=== PATIENT | male | born 1940 | race Two or more races ===

== ENCOUNTER 2018-08-23 16:09 | Emergency (ER) | payer MEDICARE, OTHER ==
[~2018-08-23] VITALS: Ht 154.9 cm; Wt 81.8 kg
[2018-08-23 16:16] VITALS: RESP 17; Ht 154.9 cm; Wt 81.8 kg
[2018-08-23] MEDS ORDERED: KETOROLAC 15 MG INJ IM STA (18:22)
[2018-08-23] MEDS ORDERED: traMADol 50 MG TAB PO ONE (18:30)
[2018-08-23] MEDS ORDERED: ACETAMINOPHEN 325 MG TAB PO ONE (18:30)
[2018-08-23] MEDS ORDERED: TRAM50TA2 PO (20:02)
[2018-08-23] MEDS ORDERED: ACET500C5 PO (20:02)
--- NOTE | 2018-08-23 20:07 | ERD ---
ER Documentation Chief Complaint Chief Complaint PT BIB AMBULANCE WITH C/O BACK PAIN S/P GLF X1 DAY, NO KO HPI 78-year-old male presents with left upper back pain after slipping in the shower and falling into a countertop. Any hemoptysis, head injury, neck pain, deficits. He has pain in the left upper back with inspiration. ROS All systems reviewed and are negative except as per history of present illness. Medications Home Meds Active Scripts Tramadol HCl (Tramadol HCl) 50 Mg Tablet, 50 MG PO Q4 PRN for PAIN, #20 TAB Prov:TOMMIE POWERS MD 08/23/18 Acetaminophen* (Tylophen*) 500 Mg Capsule, 1 CAP PO Q6H PRN for PAIN AND OR ELEVATED TEMP, #20 CAP Prov:TOMMIE POWERS MD 08/23/18 PMhx/Soc Medical and Surgical Hx: pt denies Medical Hx, pt denies Surgical Hx History of Surgery: No Anesthesia Reaction: No Hx Neurological Disorder: No Hx Respiratory Disorders: No Hx Cardiac Disorders: No Hx Psychiatric Problems: No Hx Miscellaneous Medical Probl: No Hx Alcohol Use: No Hx Substance Use: No Hx Tobacco Use: No Smoking Status: Never smoker FmHx Family History: No diabetes, No coronary disease, No other Physical Exam Vitals Vital Signs Date Temp Pulse Resp B/P (MAP) Pulse Ox O2 O2 Flow FiO2 Time Delivery Rate 08/23/18 98.0 82 17 162/72 98 16:16 (102) Physical Exam Const: No acute distress Head: Atraumatic Eyes: Normal Conjunctiva ENT: Normal External Ears, Nose and Mouth. Neck: Full range of motion. No meningismus. Resp: Clear to auscultation bilaterally Cardio: Regular rate and rhythm, no murmurs tenderness around the left T8 posterior rib. No crepitance, bleeding, skin changes. Abd: Soft, non tender, non distended. Normal bowel sounds Skin: No petechiae or rashes Back: No midline or flank tenderness Ext: No cyanosis, or edema Neur: Awake and alert Psych: Normal Mood and Affect Results 24 hrs Current Medications Medications Dose Sig/Mila Start Time Status Last (Trade) Ordered Route PRN Stop Time Admin Dose Reason Admin Ketorolac 15 mg ONCE STAT 08/23/18 DC Tromethamine IM 18:22 (Toradol) 08/23/18 18:29 Tramadol 50 mg ONCE ONCE 08/23/18 DC 08/23/18 HCl PO 18:30 18:36 (Ultram) 08/23/18 18:31 650 mg ONCE ONCE 08/23/18 DC 08/23/18 Acetaminophen PO 18:30 18:36 (Tylenol 08/23/18 18:31 Tab) Procedures/MDM Patient given Tylenol and tramadol for pain. X-ray left ribs 2V Interpreted by me: Soft Tissue: No acute abnormalities Bones: Minimally displaced fracture of left posterior T7 rib. Mediastinum/Cardiac Silhouette/Lungs:No acute abnormalities. Possible small effusion. Resents with left upper rib pain after an injury today. He has an isolated rib fracture without signs of hemothorax, pneumothorax. He is a small left-sided effusion. There is no signs of hypoxemia, respiratory distress. His pain is well controlled with tramadol and Tylenol. Discharged home with recommendations for breathing and repeat x-ray in the next 3 to 4 days to reevaluate fluid collection. There is no signs of head injury, neck injury and is otherwise well-appearing. He is to return for fevers, vomiting, shortness of breath, hemoptysis, new worsening symptoms or primary care doctor this week. The patient was stable with no new complaints during the ER course. Clinically, there is no current evidence to suggest meningitis, sepsis, acute abdomen, pneumonia, stroke, acute coronary syndrome, pulmonary embolism, aortic dissection or any other emergent condition appearing to require further evaluation or hospitalization. Patient counseled regarding my diagnostic impression and care plan. Prior to discharge all questions answered. Pt agrees with treatment plan and understands strict return precautions. Pt is instructed to follow up with primary care provider within 24-48 hours. Precautionary instructions provided including instructions to return to the ER if not im proving or for any worsening or changing symptoms or concerns. Disclaimer: Inadvertent spelling and grammatical errors are likely due to EHR/dictation software use and do not reflect on the overall quality of patient care. Also, please note that the electronic time recorded on this note does not necessarily reflect the actual time of the patient encounter. Departure Diagnosis: Primary Impression: Fracture, rib Encounter type: initial encounter Rib fracture type: single rib Fracture type: closed Laterality: left Qualified Codes: S22.32XA - Fracture of one rib, left side, initial encounter for closed fracture Condition: Stable Patient Instructions: Rib Fracture (Broken Rib) Additional Instructions: There is a rib fracture in area of pain. Recommend repeat x-ray in 3 to 5 days to evaluate for fluid collection. Recheck sooner for fevers, blood, new worsening symptoms. TOMMIE POWERS MD August 23, 2018 20:07
[2018-08-23 20:40] VITALS: BP 179/84; PULSE 71
== END 2018-08-23 20:40 | disposition home or self-care (01) ==
LOC: FTE 16:09
DX: S22.32XA Fracture of one rib, left side, initial encounter for closed fracture (principal); W01.0XXA Fall on same level from slipping, tripping and stumbling without subsequent striking against object, initial encounter; Y92.9 Unspecified place or not applicable
CPT/HCPCS: 71100

== ENCOUNTER 2018-09-06 16:08 | Inpatient (IN) | payer MEDICARE, OTHER ==
[~2018-09-06] VITALS: Ht 172.7 cm; Wt 74.7 kg
[~2018-09-06 16:08] MED LIST: ACET500C5 PO; TRAM50TA2 PO
--- NOTE | 2018-09-06 17:25 | ERD ---
ER Documentation Chief Complaint Chief Complaint Generalized weakness HPI The patient is a 78-year-old male, presenting to the ER because of generalized weakness for 1 day from home according to EMS. He is unable to provide any history, the history is obtained from EMS and medical record He was seen in the ER in August 23, 2018 when he was found to have fracture of seventh rib We were able to speak to the daughter who stated that he has not been himself for the last 10 days, not eating or drinking Past medical history: Hypertension, diabetes mellitus Surgical history/social history/review system: Unable to obtain due to his c ondition Medications Home Meds Active Scripts Tramadol HCl (Tramadol HCl) 50 Mg Tablet, 50 MG PO Q4 PRN for PAIN, #20 TAB Prov:TOMMIE POWERS MD 08/23/18 Reported Medications Folic Acid* (Folic Acid*) 1 Mg Tablet, 1 MG PO DAILY, TAB 09/06/18 Sitagliptin* (Januvia*) 100 Mg Tablet, 100 MG PO DAILY, #30 TAB 09/06/18 Hydralazine Hcl* (Hydralazine Hcl*) 25 Mg Tab, 25 MG PO BID, #60 TAB 09/06/18 Potassium Chloride* (K-Dur*) 20 Meq Tab.prt.sr, 20 MEQ PO DAILY, TAB.SA 09/06/18 Naproxen* (Naproxen*) 500 Mg Tablet, 500 MG PO BID, TAB 09/06/18 Metoprolol Tartrate* (Lopressor*) 25 Mg Tab, 25 MG PO DAILY, #60 TAB 09/06/18 Gabapentin* (Gabapentin*) 300 Mg Capsule, 300 MG PO DAILY, #60 CAP 09/06/18 Warfarin Sodium* (Warfarin Sodium*) 4 Mg Tablet, 4 MG PO DAILY, TAB 09/06/18 Clonidine Hcl* (Clonidine Hcl*) 0.1 Mg Tab, 0.1 MG PO BID, TAB 09/06/18 Acetaminophen with Codeine (Acetaminophen-Cod #3 Tablet) 1 Each Tablet, 1 TAB PO Q6H PRN for NEEDED, #7 TAB 09/06/18 Discontinued Scripts Acetaminophen* (Tylophen*) 500 Mg Capsule, 1 CAP PO Q6H PRN for PAIN AND OR ELEVATED TEMP, #20 CAP Prov:TOMMIE POWERS MD 08/23/18 Allergies Allergies: Coded Allergies: No Known Allergy (Unverified , 09/06/18) PMhx/Soc History of Surgery: No Anesthesia Reaction: No Hx Neurological Disorder: No Hx Respiratory Disorders: No Hx Cardiac Disorders: No Hx Psychiatric Problems: No Hx Miscellaneous Medical Probl: No Hx Alcohol Use: No Hx Substance Use: No Hx Tobacco Use: No Physical Exam Vitals Vital Signs Date Temp Pulse Resp B/P (MAP) Pulse Ox O2 O2 Flow FiO2 Time Delivery Rate 09/06/18 99.2 100 16 139/73 93 17:22 (95) Physical Exam Const: No acute distress Head: Atraumatic Eyes: Normal Conjunctiva ENT: Normal External Ears, Nose and Mouth. Neck: Full range of motion. No meningismus. Resp: Clear to auscultation bilaterally Cardio: Regular rate and rhythm, no murmurs Abd: Soft, non tender, non distended. Normal bowel sounds Skin: No petechiae or rashes Back: No midline or flank tenderness Ext: Mild bilateral leg edema, no calf tenderness Neur: Unable to to perform due to his condition Psych: unable to perform due to his condition Result Diagram: 09/06/18 1730 09/06/18 173 Results 24 hrs Laboratory Tests Test 09/06/18 17:30 09/06/18 17:41 White Blood Count 10.4 10^3/ul Red Blood Count 4.61 10^6/ul Hemoglobin 11.7 g/dl Hematocrit 40.3 % Mean Corpuscular Volume 87.4 fl Mean Corpuscular Hemoglobin 25.4 pg Mean Corpuscular Hemoglobin Concent 29.0 g/dl Red Cell Distribution Width 15.3 % Platelet Count 215 10^3/UL Mean Platelet Volume 12.7 fl Immature Granulocytes % 0.300 % Neutrophils % 78.5 % Lymphocytes % 13.0 % Monocytes % 7.7 % Eosinophils % 0.1 % Basophils % 0.4 % Nucleated Red Blood Cells % 0.0 /100WBC Immature Granulocytes # 0.030 10^3/ul Neutrophils # 8.2 10^3/ul Lymphocytes # 1.4 10^3/ul Monocytes # 0.8 10^3/ul Eosinophils # 0.0 10^3/ul Basophils # 0.0 10^3/ul Nucleated Red Blood Cells # 0.0 10^3/ul Prothrombin Time 26.4 Sec Prothrombin Time Ratio 2.1 INR International Normalized Ratio 2.42 Activated Partial Thromboplast Time 48.4 Sec Sodium Level 155 mmol/L Potassium Level 6.2 mmol/L Chloride Level 120 mmol/L Carbon Dioxide Level 22 mmol/L Anion Gap 13 Blood Urea Nitrogen 79 mg/dl Creatinine 5.71 mg/dl Est Glomerular Filtrat Rate mL/min mL/min Glucose Level 153 mg/dl Calcium Level 9.5 mg/dl Total Bilirubin 0.5 mg/dl Direct Bilirubin 0.00 mg/dl Indirect Bilirubin 0.5 mg/dl Aspartate Amino Transf (AST/SGOT) 51 IU/L Alanine Aminotransferase (ALT/SGPT) 12 IU/L Alkaline Phosphatase 118 IU/L Troponin I < 0.012 ng/ml B-Type Natriuretic Peptide 613 PG/ML Total Protein 8.3 g/dl Albumin 4.4 g/dl Globulin 3.90 g/dl Albumin/Globulin Ratio 1.12 POC Venous Lactate 1.2 mmol/L Current Medications Medications Dose Sig/Mila Start Time Status Last (Trade) Ordered Route PRN Stop Time Admin Dose Reason Admin Sodium 30 gm ONCE STAT 09/06/18 DC Polystyrene PO 18:31 Sulfonate 09/06/18 18:34 (Kayexelate 15 Gm Kit (Powder+Sorbi kaitlyn)) Albuterol 15 mg ONCE STAT 09/06/18 DC (Proventil INH 18:31 0.5% (Neb)) 09/06/18 18:34 Insulin 10 unit ONCE STAT 09/06/18 DC Human IVP 18:31 Regular 09/06/18 18:34 (Humulin R) Dextrose ONCE PRN 09/06/18 (D50w IV DECREASED 19:00 Syringe) GLUCOSE Dextrose 100 ml ONCE ONCE 09/06/18 (D50w IV 19:00 Syringe) 09/06/18 19:01 Procedures/MDM EKG: Read by emergency physician Rate/Rhythm: Normal Sinus Rhythm 85 beats/min QRS, ST, T-waves: No ST elevation, no T inversion, LVH Impression: Abnormal EKG MEDICAL MAKING DECISION: The patient is a 78-year-old male, presenting to the ER because of acute encephalopathy of unclear etiology, most likely acute metabolic encephalopathy, acute kidney injury, acute hyperkalemia, acute dehydration, acute hyponatremia. He was treated with albuterol 15 mg nebulizer, Kayexalate 30 g p.o., 10 units of regular insulin IV, 2 amp of D50 IV for acute hyperkalemia, normosaline 500 mL IV for acute hypovolemic hypernatremia Monsivais catheter was inserted due to acute kidney injury The differential diagnoses considered include but are not limited to metabolic encephalopathy, electrolyte imbalance, acute dehydration, delirium Critical Care: Time: 35 minutes excluding all billable procedures. Treatments/Evaluations: Close monitoring and treatment of unstable vital signs, cardiorespiratory, and neurologic status, while maintaining tight balance of fluid, respiratory, and cardiac interventions. Departure Diagnosis: Primary Impression: Encephalopathy acute Additional Impressions: Hyperkalemia MONIKA (acute kidney injury) Hypernatremia Dehydration Anemia Transaminitis Condition: Serious Comments I discussed the findings with the patient. I discussed the patient with Dr Hyatt at 6:45 p , who was made aware of the lab, the treatment, the patient condition. The patient is admitted to Tel Disclaimer: Inadvertent spelling and grammatical errors are likely due to EHR/dictation software use and do not reflect on the overall quality of patient care. Also, please note that the electronic time recorded on this note does not necessarily reflect the actual time of the patient encounter. CHRISTINA BLACK MD Sep 06, 2018 17:25
[2018-09-06] MEDS ORDERED: ACET1TAB40 PO (17:52)
[2018-09-06] MEDS ORDERED: WARF4TAB64 PO (17:53)
[2018-09-06] MEDS ORDERED: CLON-379 PO (17:53)
[2018-09-06] MEDS ORDERED: GABA300C16 PO (17:54)
[2018-09-06] MEDS ORDERED: METO-448 PO (17:54)
[2018-09-06] MEDS ORDERED: POTA20TA15 PO (17:55)
[2018-09-06] MEDS ORDERED: NAPR-688 PO (17:55)
[2018-09-06] MEDS ORDERED: HYDR-3671 PO (17:55)
[2018-09-06] MEDS ORDERED: FOLI-49 PO (17:56)
[2018-09-06] MEDS ORDERED: SITA100T11 PO (17:56)
[2018-09-06] MEDS ORDERED: SODIUM POLYSTYRENE 15 GM KIT (POWDER + SORBITOL) PO STA (18:31)
[2018-09-06] MEDS ORDERED: INSULIN REGULAR, HUMAN 100 UNIT/1 ML 3ML VIAL IVP STA (18:31)
[2018-09-06] MEDS ORDERED: ALBUTEROL 0.5% (NEB) 2.5 MG/0.5 ML AMP INH STA (18:31)
[2018-09-06] MEDS ORDERED: NACL 0.9% 3 ML SYG IV SCH (19:00)
[2018-09-06] MEDS ORDERED: DEXTROSE 50% 50 ML SYRINGE IV ONE (19:00)
[2018-09-06] MEDS ORDERED: SOD CHLORIDE 0.9% 500 ML IV ONE (19:00)
[2018-09-06] MEDS ORDERED: DEXTROSE 50% 50 ML SYRINGE IV PRN (19:00)
--- NOTE | 2018-09-06 19:23 | HP ---
Date/Time of Note Date/Time of Note DATE: 09/06/18 TIME: 19:08 Assessment/Plan VTE Prophylaxis SCD applied (from Nsg): Yes Pharmacological prophylaxis: heparin Lines/Catheters IV Catheter Type (from Nrsg): Saline Lock Assessment/Plan Hospital Course 78 yo male with h/o hypertension, DVT who presents with acute encephalopathy syn drome. Found to have renal failure with hyperkalemia and hypernatremia of unclear etiology MONIKA: - I suspect this is prerenal disease cause by lasix, NSAID and poor PO intake. Also possible that he is obstructed - We will insert a grossman and check renal ultrasound - Give IV NS bolus - Consult Dr Hogan Hypernatremia: - correct free water deficit following isotonic fluids Hyperkalemia: - S/p insulin treatment in the ED - Trend K levels - Hopefully will improve with improvement in renal function Acute encephelopathy: - Toxic metabolic related to electrolyte derangements. Will monitor mental status as electrolytes improve history of DVT: - Currently on warfarin with therapeutic INR. Per daughter this happened years ago. We can consider stopping warfarin. Will hold it for now Hypertension: - Hold home meds and monitor Result Diagram: 09/06/18 1730 09/06/18 1730 Results 24hrs Laboratory Tests Test 09/06/18 17:30 09/06/18 17:41 09/06/18 19:00 White Blood Count 10.4 Red Blood Count 4.61 L Hemoglobin 11.7 L Hematocrit 40.3 L Mean Corpuscular Volume 87.4 Mean Corpuscular Hemoglobin 25.4 L Mean Corpuscular Hemoglobin Concent 29.0 L Red Cell Distribution Width 15.3 H Platelet Count 215 Mean Platelet Volume 12.7 H Immature Granulocytes % 0.300 Neutrophils % 78.5 H Lymphocytes % 13.0 L Monocytes % 7.7 Eosinophils % 0.1 Basophils % 0.4 Nucleated Red Blood Cells % 0.0 Immature Granulocytes # 0.030 Neutrophils # 8.2 H Lymphocytes # 1.4 Monocytes # 0.8 Eosinophils # 0.0 Basophils # 0.0 Nucleated Red Blood Cells # 0.0 Prothrombin Time 26.4 H Prothrombin Time Ratio 2.1 INR International Normalized Ratio 2.42 Activated Partial Thromboplast Time 48.4 H Sodium Level 155 H Potassium Level 6.2 *H Chloride Level 120 H Carbon Dioxide Level 22 Anion Gap 13 Blood Urea Nitrogen 79 H Creatinine 5.71 H Est Glomerular Filtrat Rate mL/min Glucose Level 153 Calcium Level 9.5 Total Bilirubin 0.5 Direct Bilirubin 0.00 Indirect Bilirubin 0.5 Aspartate Amino Transf (AST/SGOT) 51 H Alanine Aminotransferase (ALT/SGPT) 12 L Alkaline Phosphatase 118 Troponin I < 0.012 B-Type Natriuretic Peptide 613 H Total Protein 8.3 H Albumin 4.4 Globulin 3.90 H Albumin/Globulin Ratio 1.12 POC Venous Lactate 1.2 Bedside Glucose 126 HPI/ROS Admit Date/Time Admit Date/Time Hx of Present Illness Very week, can't go to bathroom. Keeps falling down when he tries to stand up. Just noticed this since yesterday. Urinating himself. Very sleepy. Tried to stand, fell back on couch. Normally he walks, talks. Goes to bathroom by himself. Not eating, not drinking. ROS Constitutional: no complaints, improved Eyes: no complaints ENT: no complaints Respiratory: no complaints Cardiovascular: no complaints Gastrointestinal: no complaints Genitourinary: no complaints Musculoskeletal: no complaints Skin: no complaints Neurologic: no complaints Endocrine: no complaints Lymphatic: no complaints Psychological: no complaints, nl mood/affect Immunologic: no complaints PMH/Family/Social Past Medical History DVT on warfarin Hypertension Medications Current Medications Dextrose (D50w Syringe) ONCE PRN IV DECREASED GLUCOSE; Start 09/06/18 at 19:00 Sodium Chloride 500 ml @ 500 mls/hr Q1H ONCE IV ; Start 09/06/18 at 19:00; Stop 09/06/18 at 19:59 Dextrose/Sodium Chloride 1,000 ml @ 100 mls/hr Q10H IV ; Start 09/06/18 at 18:44; Status UNV IV Flush (NS 3 ml) 3 ml PER PROTOCOL IV ; Start 09/06/18 at 19:00; Status UNV Sodium Chloride 1,000 ml @ 1,000 mls/hr Q1H ONCE IV ; Start 09/06/18 at 19:00; Stop 09/06/18 at 19:59; Status UNV Coded Allergies: No Known Allergy (Unverified , 09/06/18) Social History Smoking Status: Never smoker Exam/Review of Systems Vital Signs Vitals Vital Signs Date Temp Pulse Resp B/P (MAP) Pulse Ox O2 O2 Flow FiO2 Time Delivery Rate 09/06/18 99.2 100 16 139/73 93 17:22 (95) Exam Exam Alert, disoriented. Unable to converse with metal tile lather No distress Appears a bit dry mucosa RRR CTAB Breathing comfortably Abdomen soft nt nd Ext without edema RADAMES CARABALLO MD Sep 06, 2018 19:23
[2018-09-06] MEDS ORDERED: SOD CHLORIDE 0.9% 1,000 ML IV ONE (20:00)
[2018-09-06 23:05] VITALS: Ht 172.7 cm; Wt 74.7 kg
[2018-09-06 23:12] VITALS: PULSE 88
[2018-09-06] MEDS: DEXTROSE 5%-0.45% NACL 1,000 ML IV SCH (23:32)
[2018-09-07] VITALS (11 sets, daily range): BP systolic 135–175; BP diastolic 63–72; PULSE 53–93; RESP 17–20
[2018-09-07] MEDS ORDERED: GLUCOSE GEL 15 GRAM TUBE BUCCAL PRN (00:30)
[2018-09-07] MEDS ORDERED: GLUCAGON 1 MG INJ IM PRN (00:30)
[2018-09-07] MEDS ORDERED: SOD CHLORIDE 0.9% 500 ML IV ONE (00:30)
[2018-09-07] MEDS ORDERED: GLUCOSE GEL 15 GRAM TUBE PO PRN ×2 (00:30)
[2018-09-07] MEDS ORDERED: DEXTROSE 50% 50 ML SYRINGE IV PRN ×2 (00:30)
[2018-09-07] MEDS: DEXTROSE 5%-0.45% NACL 1,000 ML IV SCH ×2 (07:00→10:30)
[2018-09-07] MEDS: INSULIN ASPART [NOVOLOG] 3 ML PEN SC SCH ×4 (08:16→20:40)
--- NOTE | 2018-09-07 08:23 | CONS ---
DATE OF ADMISSION: 09/06/2018 DATE OF CONSULTATION: 09/07/2018 NEPHROLOGY CONSULTATION PHYSICIAN REQUESTING CONSULT: Dr. Solorzano. REASON FOR CONSULTATION: Acute kidney injury. HISTORY OF PRESENT ILLNESS: This is a 78-year-old male with a past medical history of hypertension, history of diabetes who presents to [facility] Emergency Room for generalized weakn ess. The patient upon arrival to the emergency room was confused, unable to provide any adequate his tory. The patient states the past several days he has not been able to tolerate p.o., eating o r drinking. Upon arrival to the emergency room, the patient had laboratory data drawn, which showed elevated BUN of 79, creatinine 5.7. Sodium 155. The patient in the emergency room was treated with IV hydration. Patient was given medications for his hyperkalemia and admitted to telemetry for evalu ation. In terms of patient's renal history, the patient's baseline renal function is unknown. The patient h as no prior history of reported kidney history per patient's family and documentation. There have be en no reports of any hemoptysis, hematemesis or hematochezia. PAST MEDICAL HISTORY: As stated above, history of diabetes, hypertension. ALLERGIES: NO KNOWN DRUG ALLERGIES. FAMILY HISTORY: No family history of kidney disease. PAST SURGICAL HISTORY: Reviewed. SOCIAL HISTORY: Does not drink, smoke or do drugs. MEDICATIONS: The patient's medications were reviewed. REVIEW OF SYSTEMS: A 14-point review of systems was conducted. Pertinent positives stated in HPI, o therwise negative. PHYSICAL EXAMINATION: VITAL SIGNS: Blood pressure is 144/67, respiration 18, pulse 71, temperature 98.4. HEENT: Head is normocephalic. NECK: Supple. HEART: Regular rate. LUNGS: Show diminished breath sounds at the base. ABDOMEN: Soft, nontender to palpation without rebound or guarding. EXTREMITIES: Negative for clubbing, cyanosis, no edema. DERMATOLOGIC: No rashes. MUSCULOSKELETAL: No joint effusion. NEUROLOGIC: No focal deficits. MEDICATIONS: The patient's medications have been reviewed. LABORATORY DATA: The laboratory data has been reviewed. Imaging studies have been reviewed. Urinalysis was reviewed. The patient shows a phenol less than 1 %. Renal ultrasound was reviewed, shows echogenic kidneys compatible with medical renal disease, no evidence of obstruction. ASSESSMENT AND PLAN: This is a 78-year-old male who presents with: 1. Nonoliguric acute kidney injury on top of chronic kidney disease with unknown baseline creatinine . Etiology of acute kidney injury is secondary to volume depletion and dehydration. The patient's u rinalysis shows FENa less than 1%, consistent with prerenal etiology. There is no evidence of active sediment. Renal ultrasound shows no obstruction. Recommendation is to continue patient on aggressi ve IV hydration. Otherwise, continue supportive care, renally dose all meds, avoid nephrotoxins. 2. Hypernatremia. The patient has a free water deficit of approximately 3 liters. Continue patient on hypertonic fluids, monitor sodium levels closely. Continue current free water intake. 3. Anemia. Monitor hemoglobin and hematocrit levels. 4. Mineral bone disorder, monitor calcium and phosphorus levels. 5. Lactic acidosis. Etiology is likely secondary to volume depletion, hemodynamics. Continue to mo nitor. Continue to trend lactic acid level. 6. Hyperkalemia, etiology is secondary to acute kidney injury. The patient's potassium levels have improved status post insulin and Kayexalate. Continue to monitor. 7. Acute encephalopathy, etiology is likely toxic metabolic secondary to acute kidney injury, hypona tremia. Continue to monitor, correct underlying underlying electrolyte abnormalities. 8. History of deep venous thrombosis. Continue to monitor. 9. Diabetes. Continue to monitor Accu-Cheks. 10. Hypertension. Continue to monitor closely on IV fluids. Thank you, Dr. Hyatt, for this interesting consult. It will be a pleasure to follow the patient wit h stefano throughout the hospital course. Dictated By: AMILCAR REED DO NR/NTS Conf#: [id number] DID#: [id number] CC: RADAMES HYATT MD;*EndCC*
[2018-09-07] MEDS: SOD CHLORIDE 0.45% 1,000 ML IV SCH ×2 (12:45→17:26)
--- NOTE | 2018-09-07 14:42 | PN ---
Date/Time of Note Date/Time of Note DATE: 09/07/18 TIME: 14:41 Assessment/Plan VTE Prophylaxis Risk score (from Ns)>0 risk: 4 SCD applied (from Ns): Yes Pharmacological prophylaxis: heparin Lines/Catheters IV Catheter Type (from Nrsg): Peripheral IV Urinary Cath still in place: Yes Reason Cath still needed: urinary retention Assessment/Plan Hospital Course 78 yo male with h/o hypertension, DVT who presents with acute encephalopathy syndrome. Found to have renal failure with hyperkalemia and hypernatremia of unclear etiology MONIKA: - I suspect this is prerenal disease cause by lasix, NSAID and poor PO intake. Also possible that he is obstructed - No evidence of obstructive disease - Continue NS Hypernatremia: - correct free water deficit following isotonic fluids Hyperkalemia: - S/p insulin treatment in the ED - Trend K levels - Hopefully will improve with improvement in renal function Acute encephelopathy: - Toxic metabolic related to electrolyte derangements. Will monitor mental status as electrolytes improve history of DVT: - Currently on warfarin with therapeutic INR. Per daughter this happened years ago. We can consider stopping warfarin. Will hold it for now Hypertension: - Hold home meds and monitor Result Diagram: 09/07/18 0628 09/07/18 0627 Results 24hrs Laboratory Tests Test 09/06/18 17:30 09/06/18 17:41 09/06/18 19:00 09/06/18 19:22 White Blood Count 10.4 Red Blood Count 4.61 L Hemoglobin 11.7 L Hematocrit 40.3 L Mean Corpuscular 87.4 Volume Mean Corpuscular 25.4 L Hemoglobin Mean Corpuscular 29.0 L Hemoglobin Concent Red Cell 15.3 H Distribution Width Platelet Count 215 Mean Platelet Volume 12.7 H Immature 0.300 Granulocytes % Neutrophils % 78.5 H Lymphocytes % 13.0 L Monocytes % 7.7 Eosinophils % 0.1 Basophils % 0.4 Nucleated Red Blood 0.0 Cells % Immature 0.030 Granulocytes # Neutrophils # 8.2 H Lymphocytes # 1.4 Monocytes # 0.8 Eosinophils # 0.0 Basophils # 0.0 Nucleated Red Blood 0.0 Cells # Prothrombin Time 26.4 H Prothrombin Time 2.1 Ratio INR International 2.42 Normalized Ratio Activated 48.4 H Partial Thromboplast Time Sodium Level 155 H Potassium Level 6.2 *H Chloride Level 120 H Carbon Dioxide Level 22 Anion Gap 13 Blood Urea Nitrogen 79 H Creatinine 5.71 H Est Glomerular Filtrat Rate mL/min Glucose Level 153 Calcium Level 9.5 Total Bilirubin 0.5 Direct Bilirubin 0.00 Indirect Bilirubin 0.5 Aspartate Amino 51 H Transf (AST/SGOT) Alanine 12 L Aminotransferase (AL T/SGPT) Alkaline Phosphatase 118 Troponin I < 0.012 B-Type Natriuretic 613 H Peptide Total Protein 8.3 H Albumin 4.4 Globulin 3.90 H Albumin/Globulin 1.12 Ratio POC Venous Lactate 1.2 Bedside Glucose 126 218 Test 09/06/18 19:35 09/06/18 19:46 09/06/18 19:50 09/06/18 22:26 Urine Color YELLOW Urine Clarity CLEAR Urine pH 5.0 Urine Specific 1.018 [place] Urine Ketones NEGATIVE Urine Nitrite NEGATIVE Urine Bilirubin NEGATIVE Urine Urobilinogen 1+ H Urine Leukocyte NEGATIVE Esterase Urine Microscopic 1 RBC Urine Microscopic 1 WBC Urine Hemoglobin 2+ H Urine Random 198.88 Creatinine Urine Random Sodium 28 L Urine Glucose NEGATIVE Urine Total Protein NEGATIVE Bedside Urine pH 5.5 (LAB) Bedside Urine 1+ H Protein (LAB) Bedside Urine Negative Glucose (UA) Bedside Urine Negative Ketones (LAB) Bedside Urine Blood 2+ H Bedside Urine Negative Nitrite (LAB) Bedside Urine Negative Leukocyte Esterase (L Lactic Acid Level 2.3 *H 3.3 *H Sodium Level 154 H Potassium Level 5.0 Chloride Level 121 H Carbon Dioxide Level 21 Anion Gap 12 Blood Urea Nitrogen 81 H Creatinine 5.33 H Est Glomerular Filtrat Rate mL/min Glucose Level 185 Calcium Level 8.9 Test 09/07/18 06:27 09/07/18 06:28 09/07/18 07:59 09/07/18 11:18 Sodium Level 155 H Potassium Level 4.9 Chloride Level 122 H Carbon Dioxide Level 24 Anion Gap 9 Blood Urea Nitrogen 70 H Creatinine 4.39 H Est Glomerular Filtrat Rate mL/min Glucose Level 183 Hemoglobin A1c 6.5 H Calcium Level 8.3 L Total Bilirubin 0.4 Direct Bilirubin 0.00 Indirect Bilirubin 0.4 Aspartate Amino 48 H Transf (AST/SGOT) Alanine 13 Aminotransferase (AL T/SGPT) Alkaline Phosphatase 80 Total Protein 6.3 # Albumin 3.2 #L Globulin 3.10 Albumin/Globulin 1.03 Ratio White Blood Count 9.0 Red Blood Count 3.74 L Hemoglobin 9.7 L Hematocrit 34.0 L Mean Corpuscular 90.9 Volume Mean Corpuscular 25.9 L Hemoglobin Mean Corpuscular 28.5 L Hemoglobin Concent Red Cell 15.3 H Distribution Width Platelet Count 155 # Mean Platelet Volume 13.0 H Immature 0.300 Granulocytes % Neutrophils % 67.7 Lymphocytes % 19.5 Monocytes % 10.7 Eosinophils % 1.4 Basophils % 0.4 Nucleated Red Blood 0.0 Cells % Immature 0.030 Granulocytes # Neutrophils # 6.1 Lymphocytes # 1.8 Monocytes # 1.0 H Eosinophils # 0.1 Basophils # 0.0 Nucleated Red Blood 0.0 Cells # Bedside Glucose 182 267 H Subjective 24 Hr Interval Summary Free Text/Dictation Seems like encephelopathy is improving Spoke coherently via hot molder Reports he has known kidney disease, sees a industrial automation engineer though doesn't know who Exam/Review of Systems Exam Vitals Vital Signs Date Temp Pulse Resp B/P (MAP) Pulse Ox O2 O2 Flow FiO2 Time Delivery Rate 09/07/18 56 13:59 09/07/18 97.8 17 151/67 97 11:17 (95) 09/07/18 Nasal 2.0 08:56 Cannula 09/06/18 21 19:51 Intake and Output 09/06/18 09/06/18 09/07/18 1515:00 23:00 07:00 IntakeIntake Total 250 ml OutputOutput Total 600 ml BalanceBalance -350 ml Constitutional: alert, oriented, well developed Psych: no complaints, nl mood/affect Head: normocephalic, atraumatic Eyes: nl conjunctiva, EOMI, nl lids, nl sclera, PERRL ENMT: nl external ears & nose, nl lips & teeth, nl nasal mucosa & septum Neck: supple, non-tender Respiratory: clear to auscultation, normal air movement Cardiovascular: regular rate and rhythm, nl pulses Gastrointestinal: soft, nl liver, spleen, non-tender Musculoskeletal: nl extremities to inspection, nl gait and stance Extremities: normal pulses Neurological: DENTAL CHAIRSIDE ASSISTANT II-XII intact, nl mental status, nl speech, nl strength Skin: nl turgor; No rash or lesions Lymph: nl lymph nodes Results Results 24hrs Laboratory Tests Test 09/06/18 17:30 09/06/18 17:41 09/06/18 19:00 09/06/18 19:22 White Blood Count 10.4 Red Blood Count 4.61 L Hemoglobin 11.7 L Hematocrit 40.3 L Mean Corpuscular 87.4 Volume Mean Corpuscular 25.4 L Hemoglobin Mean Corpuscular 29.0 L Hemoglobin Concent Red Cell 15.3 H Distribution Width Platelet Count 215 Mean Platelet Volume 12.7 H Immature 0.300 Granulocytes % Neutrophils % 78.5 H Lymphocytes % 13.0 L Monocytes % 7.7 Eosinophils % 0.1 Basophils % 0.4 Nucleated Red Blood 0.0 Cells % Immature 0.030 Granulocytes # Neutrophils # 8.2 H Lymphocytes # 1.4 Monocytes # 0.8 Eosinophils # 0.0 Basophils # 0.0 Nucleated Red Blood 0.0 Cells # Prothrombin Time 26.4 H Prothrombin Time 2.1 Ratio INR International 2.42 Normalized Ratio Activated 48.4 H Partial Thromboplast Time Sodium Level 155 H Potassium Level 6.2 *H Chloride Level 120 H Carbon Dioxide Level 22 Anion Gap 13 Blood Urea Nitrogen 79 H Creatinine 5.71 H Est Glomerular Filtrat Rate mL/min Glucose Level 153 Calcium Level 9.5 Total Bilirubin 0.5 Direct Bilirubin 0.00 Indirect Bilirubin 0.5 Aspartate Amino 51 H Transf (AST/SGOT) Alanine 12 L Aminotransferase (AL T/SGPT) Alkaline Phosphatase 118 Troponin I < 0.012 B-Type Natriuretic 613 H Peptide Total Protein 8.3 H Albumin 4.4 Globulin 3.90 H Albumin/Globulin 1.12 Ratio POC Venous Lactate 1.2 Bedside Glucose 126 218 Test 09/06/18 19:35 09/06/18 19:46 09/06/18 19:50 09/06/18 22:26 Urine Color YELLOW Urine Clarity CLEAR Urine pH 5.0 Urine Specific 1.018 [place] Urine Ketones NEGATIVE Urine Nitrite NEGATIVE Urine Bilirubin NEGATIVE Urine Urobilinogen 1+ H Urine Leukocyte NEGATIVE Esterase Urine Microscopic 1 RBC Urine Microscopic 1 WBC Urine Hemoglobin 2+ H Urine Random 198.88 Creatinine Urine Random Sodium 28 L Urine Glucose NEGATIVE Urine Total Protein NEGATIVE Bedside Urine pH 5.5 (LAB) Bedside Urine 1+ H Protein (LAB) Bedside Urine Negative Glucose (UA) Bedside Urine Negative Ketones (LAB) Bedside Urine Blood 2+ H Bedside Urine Negative Nitrite (LAB) Bedside Urine Negative Leukocyte Esterase (L Lactic Acid Level 2.3 *H 3.3 *H Sodium Level 154 H Potassium Level 5.0 Chloride Level 121 H Carbon Dioxide Level 21 Anion Gap 12 Blood Urea Nitrogen 81 H Creatinine 5.33 H Est Glomerular Filtrat Rate mL/min Glucose Level 185 Calcium Level 8.9 Test 09/07/18 06:27 09/07/18 06:28 09/07/18 07:59 09/07/18 11:18 Sodium Level 155 H Potassium Level 4.9 Chloride Level 122 H Carbon Dioxide Level 24 Anion Gap 9 Blood Urea Nitrogen 70 H Creatinine 4.39 H Est Glomerular Filtrat Rate mL/min Glucose Level 183 Hemoglobin A1c 6.5 H Calcium Level 8.3 L Total Bilirubin 0.4 Direct Bilirubin 0.00 Indirect Bilirubin 0.4 Aspartate Amino 48 H Transf (AST/SGOT) Alanine 13 Aminotransferase (AL T/SGPT) Alkaline Phosphatase 80 Total Protein 6.3 # Albumin 3.2 #L Globulin 3.10 Albumin/Globulin 1.03 Ratio White Blood Count 9.0 Red Blood Count 3.74 L Hemoglobin 9.7 L Hematocrit 34.0 L Mean Corpuscular 90.9 Volume Mean Corpuscular 25.9 L Hemoglobin Mean Corpuscular 28.5 L Hemoglobin Concent Red Cell 15.3 H Distribution Width Platelet Count 155 # Mean Platelet Volume 13.0 H Immature 0.300 Granulocytes % Neutrophils % 67.7 Lymphocytes % 19.5 Monocytes % 10.7 Eosinophils % 1.4 Basophils % 0.4 Nucleated Red Blood 0.0 Cells % Immature 0.030 Granulocytes # Neutrophils # 6.1 Lymphocytes # 1.8 Monocytes # 1.0 H Eosinophils # 0.1 Basophils # 0.0 Nucleated Red Blood 0.0 Cells # Bedside Glucose 182 267 H Medications Medication Current Medications Dextrose (D50w Syringe) ONCE PRN IV DECREASED GLUCOSE; Start 09/06/18 at 19:00 IV Flush (NS 3 ml) 3 ml PER PROTOCOL IV ; Start 09/06/18 at 19:00 Diagnostic Test (Pha) (Accu-Chek) 1 ea 02 XX ; Start 09/08/18 at 02:00 Insulin Aspart (Novolog Insulin Pen) NOVOLOG *MILD* ALGORITHM WITH MEALS BEDTIME SC Last administered on 09/07/18at 11:20; Admin Dose 4 UNIT; Start 09/07/18 at 07:55 Miscellaneous Information 1 ea NOTE XX ; Start 09/07/18 at 00:30 Glucose (Glutose) 15 gm Q15M PRN PO DECREASED GLUCOSE; Start 09/07/18 at 00:30 Glucose (Glutose) 22.5 gm Q15M PRN PO DECREASED GLUCOSE; Start 09/07/18 at 00:30 Dextrose (D50w Syringe) 25 ml Q15M PRN IV DECREASED GLUCOSE; Start 09/07/18 at 00:30 Dextrose (D50w Syringe) 50 ml Q15M PRN IV DECREASED GLUCOSE; Start 09/07/18 at 00:30 Glucagon (Glucagen) 1 mg Q15M PRN IM DECREASED GLUCOSE; Start 09/07/18 at 00:30 Glucose (Glutose) 15 gm Q15M PRN BUCCAL DECREASED GLUCOSE; Start 09/07/18 at 00:30 Sodium Chloride 1,000 ml @ 200 mls/hr Q5H IV Last administered on 09/07/18at 12:45; Admin Dose 200 MLS/HR; Start 09/07/18 at 12:00 RADAMES CARABALLO MD Sep 07, 2018 14:42
[2018-09-07] MEDS: hydrALAzine 20 MG INJ IV PRN (22:07)
[2018-09-08] VITALS (13 sets, daily range): BP systolic 10–189; BP diastolic 60–79; PULSE 59–93; RESP 16–20
[2018-09-08] MEDS: SOD CHLORIDE 0.45% 1,000 ML IV SCH ×4 (00:38→12:46)
[2018-09-08] MEDS ORDERED: ACCU-CHEK XX SCH (02:00)
[2018-09-08] MEDS: INSULIN ASPART [NOVOLOG] 3 ML PEN SC SCH ×4 (07:55→20:29)
--- NOTE | 2018-09-08 09:42 | PN ---
DATE: 09/08/2018 SUBJECTIVE: The patient is stable, no events overnight. OBJECTIVE: VITAL SIGNS: Blood pressure 189/77, respiration 18, pulse 66, temperature 97.6. HEENT: Head is normocephalic. NECK: Supple. HEART: Regular rate. LUNGS: Show diminished breath sounds at the base. ABDOMEN: Soft, nontender to palpation without rebound or guarding. EXTREMITIES: Negative for clubbing, cyanosis, no edema. DERMATOLOGIC: No rashes. MUSCULOSKELETAL: No joint effusion. NEUROLOGIC: No focal deficits. MEDICATIONS: Have been reviewed. LABORATORY DATA: Has been reviewed. IMAGING STUDIES: Have been reviewed. ASSESSMENT AND PLAN: 1. Nonoliguric acute kidney injury on top of CKD with unknown baseline creatinine. Etiology of MONIKA is secondary to volume depletion and dehydration. The patient's renal function has been improving wi th IV fluids. Recommendation is to continue IV hydration. We will deescalate rate from 200 mL to 50 mL an hour. We will monitor renal function and volume status closely. 2. Hypernatremia, resolved. Continue hypotonic fluids. Continue to encourage free water intake. 3. Anemia. Monitor H and H levels. 4. Mineral bone disorder. Monitor calcium and phosphorus levels. 5. Lactic acidosis secondary to volume depletion. Hemodynamics, improving. Continue to monitor. 6. Hyperkalemia. 7. Acute kidney injury, resolved. 8. Acute encephalopathy, etiology is toxic metabolic secondary to acute kidney injury and hypernatre lewis, improved. 9. Diabetes. Continue current insulin regimen. 10. Hypertension in part due to IV fluids. We will deescalate IV hydration and monitor closely. Co ntinue medical management. Defer any EDEN inhibitor or ARB at this time. Dictated By: AMILCAR DAVID/BECKIE Conf#: [id number] DID#: [id number]
--- NOTE | 2018-09-08 11:51 | PN ---
Date/Time of Note Date/Time of Note DATE: 09/08/18 TIME: 11:50 Assessment/Plan VTE Prophylaxis Risk score (from Ns)>0 risk: 4 SCD applied (from Ns): Yes Pharmacological prophylaxis: heparin Lines/Catheters IV Catheter Type (from Nrsg): Peripheral IV Urinary Cath still in place: No Assessment/Plan Hospital Course 78 yo male with h/o hypertension, DVT who presents with acute encephalopathy syndrome. Found to have renal failure with hyperkalemia and hypernatremia of unclear etiology MONIKA: - I suspect this is prerenal disease cause by lasix, NSAID and poor PO intake. Also possible that he is obstructed - No evidence of obstructive disease - Continue NS, renal function improving Hypernatremia: - Resolved Hyperkalemia: - Resolved Acute encephelopathy: - Toxic metabolic related to electrolyte derangements. Seems resolved to baseline history of DVT: - Currently on warfarin with therapeutic INR. Per daughter this happened years ago. We can consider stopping warfarin. Will hold it for now Hypertension: - Hold home meds and monitor Result Diagram: 09/08/1862009/08/1821 Results 24hrs Laboratory Tests Test 09/07/18 15:02 09/07/18 17:25 09/07/18 20:36 09/08/18 03:30 Sodium Level 149 H Potassium Level 4.6 Chloride Level 117 H Carbon Dioxide Level 22 Anion Gap 10 Blood Urea Nitrogen 63 H Creatinine 3.43 H Est Glomerular Filtrat Rate mL/min Glucose Level 139 # Calcium Level 8.0 L Bedside Glucose 110 189 Urine Color STRAW Urine Clarity CLEAR Urine pH 5.0 Urine Specific 1.010 [place] Urine Ketones NEGATIVE Urine Nitrite NEGATIVE Urine Bilirubin NEGATIVE Urine Urobilinogen NEGATIVE Urine Leukocyte NEGATIVE Esterase Urine Microscopic 1 RBC Urine Microscopic 1 WBC Urine Bacteria FEW A Urine Hemoglobin 1+ H Urine Random 42.12 Creatinine Urine Random Sodium 96 H Urine Glucose NEGATIVE Urine Total Protein 20.0 H Test 09/08/18 06:21 09/08/18 08:44 White Blood Count 8.5 Red Blood Count 3.79 L Hemoglobin 9.5 L Hematocrit 32.5 L Mean Corpuscular 85.8 Volume Mean Corpuscular 25.1 L Hemoglobin Mean Corpuscular 29.2 L Hemoglobin Concent Red Cell 14.8 H Distribution Width Platelet Count 145 Mean Platelet Volume 12.9 H Immature 0.500 H Granulocytes % Neutrophils % 67.7 Lymphocytes % 19.0 Monocytes % 8.7 Eosinophils % 3.9 Basophils % 0.2 Nucleated Red Blood 0.0 Cells % Immature 0.040 H Granulocytes # Neutrophils # 5.8 Lymphocytes # 1.6 Monocytes # 0.7 Eosinophils # 0.3 Basophils # 0.0 Nucleated Red Blood 0.0 Cells # Sodium Level 142 Potassium Level 4.3 Chloride Level 115 H Carbon Dioxide Level 21 Anion Gap 6 Blood Urea Nitrogen 47 #H Creatinine 2.62 H Est Glomerular Filtrat Rate mL/min Glucose Level 106 Calcium Level 8.2 L Phosphorus Level 3.1 Magnesium Level 2.0 Bedside Glucose 103 Subjective 24 Hr Interval Summary Free Text/Dictation Improving nicely Denies complaints Exam/Review of Systems Exam Vitals Vital Signs Date Temp Pulse Resp B/P (MAP) Pulse Ox O2 O2 Flow FiO2 Time Delivery Rate 09/08/18 59 08:01 09/08/18 97.4 18 189/77 98 Room Air 07:42 (114) 09/08/18 2.0 07:35 09/06/18 21 19:51 Intake and Output 09/07/18 09/07/18 09/08/18 1515:00 23:00 07:00 IntakeIntake Total 1000 ml 3200 ml 940 ml OutputOutput Total 500 ml 2300 ml BalanceBalance 1000 ml 2700 ml -1360 ml Constitutional: alert, oriented, well developed Psych: no complaints, nl mood/affect Head: normocephalic, atraumatic Eyes: nl conjunctiva, EOMI, nl lids, nl sclera, PERRL ENMT: nl external ears & nose, nl lips & teeth, nl nasal mucosa & septum Neck: supple, non-tender Respiratory: clear to auscultation, normal air movement Cardiovascular: regular rate and rhythm, nl pulses Gastrointestinal: soft, nl liver, spleen, non-tender Musculoskeletal: nl extremities to inspection, nl gait and stance Extremities: normal pulses Neurological: MICROCOMPUTER TECHNICIAN II-XII intact, nl mental status, nl speech, nl strength Skin: nl turgor; No rash or lesions Lymph: nl lymph nodes Results Results 24hrs Laboratory Tests Test 09/07/18 15:02 09/07/18 17:25 09/07/18 20:36 09/08/18 03:30 Sodium Level 149 H Potassium Level 4.6 Chloride Level 117 H Carbon Dioxide Level 22 Anion Gap 10 Blood Urea Nitrogen 63 H Creatinine 3.43 H Est Glomerular Filtrat Rate mL/min Glucose Level 139 # Calcium Level 8.0 L Bedside Glucose 110 189 Urine Color STRAW Urine Clarity CLEAR Urine pH 5.0 Urine Specific 1.010 [place] Urine Ketones NEGATIVE Urine Nitrite NEGATIVE Urine Bilirubin NEGATIVE Urine Urobilinogen NEGATIVE Urine Leukocyte NEGATIVE Esterase Urine Microscopic 1 RBC Urine Microscopic 1 WBC Urine Bacteria FEW A Urine Hemoglobin 1+ H Urine Random 42.12 Creatinine Urine Random Sodium 96 H Urine Glucose NEGATIVE Urine Total Protein 20.0 H Test 09/08/18 06:21 09/08/18 08:44 White Blood Count 8.5 Red Blood Count 3.79 L Hemoglobin 9.5 L Hematocrit 32.5 L Mean Corpuscular 85.8 Volume Mean Corpuscular 25.1 L Hemoglobin Mean Corpuscular 29.2 L Hemoglobin Concent Red Cell 14.8 H Distribution Width Platelet Count 145 Mean Platelet Volume 12.9 H Immature 0.500 H Granulocytes % Neutrophils % 67.7 Lymphocytes % 19.0 Monocytes % 8.7 Eosinophils % 3.9 Basophils % 0.2 Nucleated Red Blood 0.0 Cells % Immature 0.040 H Granulocytes # Neutrophils # 5.8 Lymphocytes # 1.6 Monocytes # 0.7 Eosinophils # 0.3 Basophils # 0.0 Nucleated Red Blood 0.0 Cells # Sodium Level 142 Potassium Level 4.3 Chloride Level 115 H Carbon Dioxide Level 21 Anion Gap 6 Blood Urea Nitrogen 47 #H Creatinine 2.62 H Est Glomerular Filtrat Rate mL/min Glucose Level 106 Calcium Level 8.2 L Phosphorus Level 3.1 Magnesium Level 2.0 Bedside Glucose 103 Medications Medication Current Medications Dextrose (D50w Syringe) ONCE PRN IV DECREASED GLUCOSE; Start 09/06/18 at 19:00 IV Flush (NS 3 ml) 3 ml PER PROTOCOL IV ; Start 09/06/18 at 19:00 Insulin Aspart (Novolog Insulin Pen) NOVOLOG *MILD* ALGORITHM WITH MEALS BEDTIME SC Last administered on 09/07/18at 20:40; Admin Dose 1 UNIT; Start 09/07/18 at 07:55 Miscellaneous Information 1 ea NOTE XX ; Start 09/07/18 at 00:30 Glucose (Glutose) 15 gm Q15M PRN PO DECREASED GLUCOSE; Start 09/07/18 at 00:30 Glucose (Glutose) 22.5 gm Q15M PRN PO DECREASED GLUCOSE; Start 09/07/18 at 00:30 Dextrose (D50w Syringe) 25 ml Q15M PRN IV DECREASED GLUCOSE; Start 09/07/18 at 00:30 Dextrose (D50w Syringe) 50 ml Q15M PRN IV DECREASED GLUCOSE; Start 09/07/18 at 00:30 Glucagon (Glucagen) 1 mg Q15M PRN IM DECREASED GLUCOSE; Start 09/07/18 at 00:30 Glucose (Glutose) 15 gm Q15M PRN BUCCAL DECREASED GLUCOSE; Start 09/07/18 at 00:30 Sodium Chloride 1,000 ml @ 50 mls/hr Q20H IV Last administered on 09/08/18at 06:46; Admin Dose 200 MLS/HR; Start 09/07/18 at 12:00 Hydralazine HCl (Apresoline) 10 mg Q4H PRN IV ELEVATED BLOOD PRESSURE Last administered on 09/07/18at 22:07; Admin Dose 10 MG; Start 09/07/18 at 21:30 RADAMES CARABALLO MD Sep 08, 2018 11:51
[2018-09-08] MEDS: hydrALAzine 20 MG INJ IV PRN (23:12)
[2018-09-09] VITALS (11 sets, daily range): BP systolic 140–189; BP diastolic 65–79; PULSE 66–93; RESP 18–20
[2018-09-09] MEDS: hydrALAzine 20 MG INJ IV PRN ×2 (04:18→18:20)
[2018-09-09] MEDS: INSULIN ASPART [NOVOLOG] 3 ML PEN SC SCH ×4 (07:55→21:00)
--- NOTE | 2018-09-09 08:33 | PN ---
DATE: 09/09/2018 SUBJECTIVE: The patient is stable. No events overnight. No fevers, chills, nausea, vomiting. OBJECTIVE: VITAL SIGNS: Blood pressure is 142/66, respiration 18, pulse 66, temperature 98.3. HEENT: Head is normocephalic. NECK: Supple. HEART: Regular rate. LUNGS: Show diminished breath sounds at the base. ABDOMEN: Soft, nontender to palpation without rebound or guarding. EXTREMITIES: Negative for clubbing, cyanosis, no edema. DERMATOLOGIC: No rashes. MUSCULOSKELETAL: No joint effusion. NEUROLOGIC: No change in exam. MEDICATIONS: The patient's medications have been reviewed. LABORATORY DATA: Has been reviewed and pending. ASSESSMENT AND PLAN: 1. Nonoliguric acute kidney injury on top of chronic kidney disease with unknown baseline creatinine . Etiology of MONIKA is secondary to volume depletion and dehydration. The patient's renal function is improving with IV fluids. The patient appears euvolemic on exam. Plan is to discontinue IV fluids. We will monitor renal function closely. 2. Hypernatremia, improved. Continue to encourage free water intake. 3. Anemia. Monitor hemoglobin and hematocrit levels. 4. Mineral bone disorder. Monitor calcium and phosphorus level. 5. Hyperkalemia, improved. 6. Acute encephalopathy, etiology is toxic metabolic. Continue to monitor. 7. Diabetes. Continue current insulin regimen. 8. Hypertension, improving. Continue current blood pressure regimen. We will discontinue IV fluids . Dictated By: AMILCAR REED DO NR/NTS Conf#: [id number] DID#: [id number] CC: RADAMES CARABALLO MD;*End*
--- NOTE | 2018-09-09 12:05 | PDOCDIS ---
Discharge Instructions DIAGNOSIS Discharge Diagnosis MONIKA Dehydration/hypovolemia CONDITION [id number] Patient Condition: [id number] Stable FOLLOW UP/APPOINTMENTS Follow-up Plan Stop taking lasix You should stop taking naproxen or any other medications called NSAIDs You should also stop taking your blood pressure medicaitons for the time being until you see your doctor in clinic in the next couple weeks RADAMES CARABALLO MD Sep 09, 2018 12:05
--- NOTE | 2018-09-09 12:10 | DS ---
Date/Time of Note Date/Time of Note DATE: 09/09/18 TIME: 12:08 Discharge Summary Admission/Discharge Info Admit Date/Time Sep 06, 2018 at 18:55 Discharge Date/Time Discharge Diagnosis MONIKA Dehydration/hypovolemia Patient Condition: Stable Hx of Present Illness Very week, can't go to bathroom. Keeps falling down when he tries to stand up. Just noticed this since yesterday. Urinating himself. Very sleepy. Tried to stand, fell back on couch. Normally he walks, talks. Goes to bathroom by himself. Not eating, not drinking. Hospital Course 78 yo male with h/o hypertension, DVT who presents with acute encephalopathy syndrome. Found to have renal failure with hyperkalemia and hypernatremia. From medication history the patinet had been taking lasix and naproxen daily. The medications were held. He was given IV normal saline and water. His kidney function improved and his hypernatremia resolved. He was advised to stop taking lasix and NSAIDs. He had been taking warfarin for DVT which occured years ago. I encouraged him to discuss with his primary doctor whether he still needs to be taking this. PT was given and he was sent to [facility] for further rehab prior to return home. Home Meds Active Scripts Tramadol HCl (Tramadol HCl) 50 Mg Tablet, 50 MG PO Q4 PRN for PAIN, #20 TAB Prov:TOMMIE POWERS MD 08/23/18 Reported Medications Folic Acid* (Folic Acid*) 1 Mg Tablet, 1 MG PO DAILY, TAB 09/06/18 Sitagliptin* (Januvia*) 100 Mg Tablet, 100 MG PO DAILY, #30 TAB 09/06/18 Hydralazine Hcl* (Hydralazine Hcl*) 25 Mg Tab, 25 MG PO BID, #60 TAB 09/06/18 Potassium Chloride* (K-Dur*) 20 Meq Tab.prt.sr, 20 MEQ PO DAILY, TAB.SA 09/06/18 Naproxen* (Naproxen*) 500 Mg Tablet, 500 MG PO BID, TAB 09/06/18 Metoprolol Tartrate* (Lopressor*) 25 Mg Tab, 25 MG PO DAILY, #60 TAB 09/06/18 Gabapentin* (Gabapentin*) 300 Mg Capsule, 300 MG PO DAILY, #60 CAP 09/06/18 Warfarin Sodium* (Warfarin Sodium*) 4 Mg Tablet, 4 MG PO DAILY, TAB 09/06/18 Clonidine Hcl* (Clonidine Hcl*) 0.1 Mg Tab, 0.1 MG PO BID, TAB 09/06/18 Acetaminophen with Codeine (Acetaminophen-Cod #3 Tablet) 1 Each Tablet, 1 TAB PO Q6H PRN for NEEDED, #7 TAB 09/06/18 Discontinued Scripts Acetaminophen* (Tylophen*) 500 Mg Capsule, 1 CAP PO Q6H PRN for PAIN AND OR ELEVATED TEMP, #20 CAP Prov:TOMMIE POWERS MD 08/23/18 Follow-up Plan Stop taking lasix You should stop taking naproxen or any other medications called NSAIDs You should also stop taking your blood pressure medicaitons for the time being until you see your doctor in clinic in the next couple weeks Primary Care Provider Not On Staff Doctor Pending Labs Laboratory Tests Test 09/08/18 12:44 09/08/18 17:07 09/08/18 20:27 09/09/18 07:04 Bedside 154 102 172 Glucose mg/dL (70-220) mg/dL (70-220) mg/dL (70-220) Sodium Level 144 mmol/L (135-14 4) Potassium 4.2 Level mmol/L (3.5-5. 1) Chloride Level 116 mmol/L (97-110 ) Carbon Dioxide 22 Level mmol/L (21-31) Anion Gap 6 (5-13) Blood Urea 31 Nitrogen mg/dl (7-20) Creatinine 2.10 mg/dl (0.61-1. 24) Est Glomerular mL/min (>60) Filtrat Rate mL/min Glucose Level 103 mg/dl (70-220) Calcium Level 8.7 mg/dl (8.4-10. 2) Phosphorus 2.7 Level mg/dl (2.5-4.9 ) Magnesium 1.9 Level mg/dl (1.7-2.5 ) Test 09/09/18 08:02 09/09/18 12:02 Bedside 95 94 Glucose mg/dL (70-220) mg/dL (70-220) RADAMES CARABALLO MD Sep 09, 2018 12:10
[2018-09-09] MEDS ORDERED: hydrALAzine 20 MG INJ IV ONE (21:30)
== END 2018-09-09 22:03 | DRG 682 ==
LOC: E/R 16:08 → SUATTDRO 18:41 → TEL 18:55
PROVIDERS: ADMIT Internal Medicine; ATTEND Internal Medicine
DX: N17.9 Acute kidney failure, unspecified (principal); G92 Toxic encephalopathy; E87.0 Hyperosmolality and hypernatremia; E87.2 Acidosis; E86.0 Dehydration; E87.5 Hyperkalemia; R41.0 Disorientation, unspecified; I12.9 Hypertensive chronic kidney disease with stage 1 through stage 4 chronic kidney disease, or unspecified chronic kidney disease; N18.9 Chronic kidney disease, unspecified; E11.9 Type 2 diabetes mellitus without complications; Z86.718 Personal history of other venous thrombosis and embolism; Z79.01 Long term (current) use of anticoagulants
CPT/HCPCS: 36415; 70450; 71045; 76775; 80048; 80053; 81001; 81003; 82043; 82962; 83036; 83605; 83735; 83880; 84100; 84155; 84300; 84484; 85025; 85610; 85730; 87086; 93005; 93970; 94664; 97116; 97161; 97530; J0360; J1815; J7030; J7040; J7042